=== PATIENT | female | born 1975 | race Caucasian/White ===

== ENCOUNTER → 2024-08-04 | Outpatient (CLI) | payer OTHER ==
[2024-08-04 09:03] VITALS: BP 144/82; PULSE 89; RESP 17; TEMP 97.8
--- NOTE | 2024-08-04 09:28 | P.GSCN ---
History of Present Illness Consult date: 08/04/24 Reason for Consult: abnormal right breast ultrasound/mammogram Requesting physician: Dev Cole History of present illness: Anabela is a 49 year old female who had a bilateral mammogram on 06-28-24 at [facility], this led to a right breast ultrasound and a ? lesion 8 by 6 by 2 cm was seen in the right breast for which biopsy vs. MRI recommended for further evaluation. A second lesion was noted and not recommended for biopsy. This was also at the 2:00 position. The films are not available for us at this time. She does not feel any lumps masses or nodules of concern in either breast. She has never had any surgery on her breast. She does have intermittent right milky discharge. This has been ongoing for several years. She has not had any recent trauma or infection in the breast. Caffeine: green and black tea 3 cups/day nicotine: 3 packs/week for 38 years chocolate: daily BCP: never used hormones: none Family History: mother: skin cancer/melanoma maternal grandfather: melanoma in early 60's maternal uncle/ melanoma before 50 Hormonal History: menarche: 11 M1, breast fed: yes, age at first : 20 hysterectomy at 40 took 1 ovary; done for bleeding no cancer Surgical History: hysterectomy and one ovary removed gallshania appy 2 C sections Medical History: GERD anxiety/depression Social History: nicotine: as above alcohol: none drugs: none Review of Systems - Constitutional Denies fever, Denies weight loss - EENT Eyes: denies blurred vision Ears: deny: decreased hearing, tinnitus Ears, nose, mouth and throat: Denies dysphagia - Breasts bilateral: as per HPI - Cardiovascular Denies chest pain, Denies shortness of breath - Respiratory Respiratory Comment(s): smoker Reports cough - Gastrointestinal Gastrointestinal Comment(s): GERD Reports as per HPI - Genitourinary Genitourinary: Denies dysuria, Denies hematuria Menstruation: Reports post hysterectomy - Musculoskeletal Reports as per HPI - Integumentary Denies rash, Denies unusual bruising - Neurological Denies headaches, Denies syncope - Psychiatric Psychiatric Comment(s): Prozac and Wellbutrin Reports anxiety, Reports depression - Endocrine Endocrine Comment(s): gsaine 70 pounds in 1 1/2 years Reports as per HPI, Reports weight change - Hematologic/Lymphatic Denies easy bleeding, Denies easy bruising - Allergic/Immunologic Reports as per HPI, Reports seasonal allergies Past Medical History Past Medical History: No Reported History History of Any Multi-Drug Resistant Organisms: None Reported Past Surgical History: Appendectomy, Section, Cholecystectomy, Hysterectomy Past Anesthesia/Blood Transfusion Reactions: No Reported Reaction Past Psychological History: Anxiety, Depression, PTSD Smoking Status: Current every day smoker Past Alcohol Use History: None Reported Past Drug Use History: None Reported Medications and Allergies Home Medications Medication Instructions Recorded Confirmed Type FLUoxetine HCL [PROzac] 40 mg PO DAILY 08/04/24 08/04/24 History Metoclopramide [Reglan] 10 mg PO DAILY 08/04/24 08/04/24 History Pantoprazole [Protonix] 40 mg PO DAILY 08/04/24 08/04/24 History buPROPion [Wellbutrin] 100 mg PO DAILY 08/04/24 08/04/24 History Allergies Allergy/AdvReac Type Severity Reaction Status Date / Time No Known Allergies Allergy Unverified 08/04/24 08:57 Surgical - Exam Vital Signs Temp Pulse Resp BP Pulse Ox 97.8 F 89 17 144/82 97 08/04/24 08:59 08/04/24 08:59 08/04/24 08:59 08/04/24 08:59 08/04/24 08:59 - General no distress - Eyes normal ocular movement - ENT no hearing loss - Neck trachea midline - Respiratory normal respiratory effort, clear to auscultation - Cardiovascular Rhythm: regular Heart Sounds: normal: S1, S2 - Abdomen Abdomen: soft, non tender, no guarding, no rigid, no rebound - Neurologic no disoriented, no combative - Musculoskeletal normal gait - Psychiatric oriented to time, oriented to person, oriented to place, speech is normal, memory intact Breast Exam: BRA: 44DDD Inspection: bilateral grade 3 ptosis Palpation: right breast: Multi positional exam no dominant masses or nodules of concern, particular attention to the upper inner quadrant no specific lesions of concern, no nipple discharge on today's exam Right axilla: No adenopathy of concern Left breast: Multi positional exam no dominant masses or nodules of concern Left axilla: No adenopathy of concern multiople tattoos Results Mammogram and ultrasound results reviewed, the films are not available for us to review at this time Assessment and Plan Assessment: Impression: Abnormal right breast mammogram/ultrasound Intermittent right breast nipple discharge Plan: Patient is going to go and obtain her radiographs from [facility] and bring them to us today We will most likely recommend an ultrasound-guided core biopsy of the area of concern in the right breast I will order a prolactin level secondary to the milky discharge from the right breast MRI secondary to discharge right breast CC: Dr. Cole
== END ==
LOC: WWCWWP 08:44
PROVIDERS: ATTEND Surgery
DX: N64.52 Nipple discharge (principal); F17.200 Nicotine dependence, unspecified, uncomplicated; R92.8 Other abnormal and inconclusive findings on diagnostic imaging of breast

== ENCOUNTER → 2024-10-06 | Outpatient (CLI) | payer OTHER ==
--- NOTE | 2024-10-19 12:56 | MR ---
EXAM DATE: 10/10/2024; 10/17/2024 EXAM DESCRIPTION: MRI-Breast Bilat (W/WO Contrast) INDICATION: Diagnostic MRI, bloody nipple discharge COMPARISON: Comparison is made with relevant prior imaging in PACS. CONTRAST: 15 cc of Gadobutrol on 10/06/2024 and 12.5 CC of Gadobutrol on 10/13/2024. TECHNIQUE: Multiplanar MRI imaging of both breasts was performed with a dedicated breast coil, before and after intravenous administration of gadolinium contrast, using the standard breast mass protocol. Computer-aided detection was used to aid in interpretation. Study was performed at [facility] with Radiologic interpretation by [facility]. FINDINGS: The examination is non-diagnostic. There is no contrast on post contrast images. The patient returned on 10/13/2024 for repeat sequences however post contrast sequences show no contrast. This may be due to extravasation of the contrast into the wrist or technical limitations however this examination cannot be interpreted. IMPRESSION: Non-diagnostic examination as described above. MTDD
== END | disposition home or self-care (01) ==
LOC: RADMRIMAIN 20:30
PROVIDERS: ATTEND Surgery
DX: N64.52 Nipple discharge (principal)
CPT/HCPCS: 77049

== ENCOUNTER → 2024-10-13 | Outpatient (CLI) | payer OTHER | END | disposition home or self-care (01) | LOC: RADMRIMAIN 17:15 | PROVIDERS: ATTEND Surgery | DX: Z53.9 Procedure and treatment not carried out, unspecified reason (principal) ==

== ENCOUNTER → 2024-10-21 | Outpatient (CLI) | payer OTHER ==
[2024-10-21 12:48] VITALS: BP 151/84; PULSE 92; RESP 17; TEMP 98.5
--- NOTE | 2024-10-21 13:16 | P.PN ---
Subjective Progress Note Date: 10/21/24 abnormal right breast ultrasound/mammogram Requesting physician: Dev Cole History of present illness: Anabela is a 49 year old female who had a bilateral mammogram on 06-28-24 at [facility], this led to a right breast ultrasound and a ? lesion 8 by 6 by 2 cm was seen in the right breast for which biopsy vs. MRI recommended for further evaluation. A second lesion was noted and not recommended for biopsy. This was also at the 2:00 position. The films are not available for us at this time. She does not feel any lumps masses or nodules of concern in either breast. She has never had any surgery on her breast. She does have intermittent right milky discharge. This has been ongoing for several years. She has not had any recent trauma or infection in the breast. Her mammogram and ultrasound films were obtained from [place]. It was recommended she have ultrasound core biopsy of 2 sites in the right breast. 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 I have reviewed this with Dr. Arciniega from radiology. He has recommended needle localization and excision of both of the sites. Additionally after review of the mammogram he would like to have a spot compression view of the 12 o'clock position of the right breast. Otherwise no other lesions were identified in the breast. prolactin level: 83; upper limit of normal 2.8-29; will do a brain MRI to look for a pitutary adenoma right breast mammogram 09-01-24 BIRAD 0 recommend ultrasound right breast ultrasound 09-01-24: 11:00 right breast no lesions of concer noted repeat mammogram of the right breast 6 months breast MRI attempted on 10-10-24 and 10-17-24 both nondiagnostic reviewed and discussed with Dr. Wisdom At this time she is not having any additional nipple discharge, it was only on the right side and looked like milk. She is not complaining of any lumps masses or nodules of concern in either breast. We have discussed needle localization and excision of the areas in the right breast at 1:00 and 2:00 and at the present time we are going to put a hold on that resection until we workup the potential pituitary adenoma. Caffeine: green and black tea 3 cups/day nicotine: 3 packs/week for 38 years chocolate: daily BCP: never used hormones: none Family History: mother: skin cancer/melanoma maternal grandfather: melanoma in early 60's maternal uncle/ melanoma before 50 Hormonal History: menarche: 11 M1, breast fed: yes, age at first : 20 hysterectomy at 40 took 1 ovary; done for bleeding no cancer Surgical History: hysterectomy and one ovary removed gallbaldder appy 2 C sections Medical History: GERD anxiety/depression Social History: nicotine: as above alcohol: none drugs: none Review of Systems - Constitutional Denies fever, Denies weight loss - EENT Eyes: denies blurred vision Ears: deny: decreased hearing, tinnitus Ears, nose, mouth and throat: Denies dysphagia - Breasts bilateral: as per HPI - Cardiovascular Denies chest pain, Denies shortness of breath - Respiratory Respiratory Comment(s): smoker Reports cough - Gastrointestinal Gastrointestinal Comment(s): GERD Reports as per HPI - Genitourinary Genitourinary: Denies dysuria, Denies hematuria Menstruation: Reports post hysterectomy - Musculoskeletal Reports as per HPI - Integumentary Denies rash, Denies unusual bruising - Neurological Denies headaches, Denies syncope - Psychiatric Psychiatric Comment(s): Prozac and Wellbutrin Reports anxiety, Reports depression - Endocrine Endocrine Comment(s): gain 70 pounds in 1 1/2 years Reports as per HPI, Reports weight change - Hematologic/Lymphatic Denies easy bleeding, Denies easy bruising - Allergic/Immunologic Reports as per HPI, Reports seasonal allergies Past Medical History Past Medical History: No Reported History History of Any Multi-Drug Resistant Organisms: None Reported Past Surgical History: Appendectomy, Section, Cholecystectomy, Hysterectomy Past Anesthesia/Blood Transfusion Reactions: No Reported Reaction Past Psychological History: Anxiety, Depression, PTSD Smoking Status: Current every day smoker Past Alcohol Use History: None Reported Past Drug Use History: None Reported Medications and Allergies Home Medications Medication Instructions Recorded Confirmed Type FLUoxetine HCL [PROzac] 40 mg PO DAILY 08/04/24 08/04/24 History Metoclopramide [Reglan] 10 mg PO DAILY 08/04/24 08/04/24 History Pantoprazole [Protonix] 40 mg PO DAILY 08/04/24 08/04/24 History buPROPion [Wellbutrin] 100 mg PO DAILY 08/04/24 08/04/24 History Allergies Allergy/AdvReac Type Severity Reaction Status Date / Time No Known Allergies Allergy Unverified 08/04/24 08:57 Objective - Vital Signs Vital signs: Vital Signs Temp 98.5 F 10/21/24 12:45 Pulse 92 10/21/24 12:45 Resp 17 10/21/24 12:45 BP 151/84 10/21/24 12:45 Pulse Ox 98 10/21/24 12:45 FiO2 Intake & Output 10/20/24 10/21/24 10/21/24 18:59 06:59 18:59 Weight 124.738 kg - Constitutional General appearance: Present: cooperative - EENT Eyes: Present: EOMI ENT: Present: hearing grossly normal - Neck Neck: Present: normal ROM - Respiratory Respiratory: bilateral: CTA - Cardiovascular Rhythm: regular Heart sounds: normal: S1, S2 - Integumentary Integumentary: Present: normal turgor - Musculoskeletal Musculoskeletal: Present: gait normal - Psychiatric Psychiatric: Present: A&O x's 3, appropriate affect, intact judgment & insight - Additional findings Additional findings: Breast Exam: (from prior exam) BRA: 44DDD Inspection: bilateral grade 3 ptosis Palpation: right breast: Multi positional exam no dominant masses or nodules of concern, biopsy sites well-healed Right axilla: No adenopathy of concern Left breast: Multi positional exam no dominant masses or nodules of concern Left axilla: No adenopathy of concern multiople tattoos Assessment and Plan Assessment: Plan: prolactin level elevated MRI secondary to nipple discharge; if insurance does not cover this would do bilateral full breast ultrasound (attempted to do breast MRI twice and these were nondiagnostic) Spot compression views 12 o'clock position right breast, if there is nothing of concern there then we would do an ultrasound-guided localization of the 2 areas of concern right breast at 1:00 and 2:00 with resection in the operating room after discussion with radiology; have discussed this again with Dr. Mcgowan from radiology and we are uncertain as to if these need to be excised. I will rediscussed this with Dr. Arciniega next week Ultrasound-guided localization of the 1:00 and 2:00 site in the right breast with resection in the operating room Workup for elevated prolactin level/ Pituitary MRI with contrast, rule out prolactin tumor Appointment with endocrinology Follow-up after above is completed At this time we will hold off on any operative intervention for the lesions in the breast until this is further worked up. CC: Dr. Cole
== END ==
LOC: WWCWWP 11:54
PROVIDERS: ATTEND Surgery
DX: N64.52 Nipple discharge (principal); E22.1 Hyperprolactinemia; Z88.8 Allergy status to other drugs, medicaments and biological substances